=== PATIENT | male | born 1960 ===

== ENCOUNTER → 2021-11-13 10:06 | Outpatient (CLI) | payer OTHER, SELFPAY ==
--- NOTE | 2021-11-13 | DI.RAD_ITS ---
Exam(s) XR HAND RT COMPLETE EXAM: XR HAND RT COMPLETE CLINICAL HISTORY: PAIN IN RIGHT HAND. TECHNIQUE: 2D digital imaging was performed. Three views. COMPARISON: CR LEFT HAND COMPLETE from 06/25/2014 FINDINGS: BONES: No acute fracture is present. No bony destructive lesion is seen. JOINTS: No dislocation present. Mild degenerative changes. SOFT TISSUE: Normal. IMPRESSION: Unremarkable radiographs of the right hand. DATA REPOSITORY: RADIATION DOSE DELIVERED:
--- NOTE | 2021-11-13 10:40 | DI.VRAD_ITS ---
PROCEDURE INFORMATION: Exam: XR Right Hand Exam date and time: 11/13/2021 10:18 AM Age: 61 years old Clinical indication: Other: Pain in right hand TECHNIQUE: Imaging protocol: Radiologic exam of the Right hand. Views: 3 or more views. COMPARISON: No relevant prior studies available. FINDINGS: Bones/joints: No acute fracture or traumatic malalignment. Degenerative changes of the triscaphe joint, 1st carpometacarpal joint, thumb interphalangeal joint, and distal interphalangeal joints of the fingers. Lucency at the distal scaphoid likely represents subchondral cyst. Soft tissues: Normal. IMPRESSION: 1. No acute osseous findings. 2. Mild polyarticular degenerative changes of the wrist and fingers. Dictated and Authenticated by: Molly Rivero MD. Ordering:EFREN GIRARD MD
== END ==
PROVIDERS: Visit Provider Nurse Practitioner Family
DX: M19.041 Primary osteoarthritis, right hand (principal); M19.031 Primary osteoarthritis, right wrist
CPT/HCPCS: 73130